=== PATIENT | male | born 1980 | race African-American/Black ===

== ENCOUNTER 2017-02-24 22:43 | Emergency (ER) | payer SELFPAY ==
[~2017-02-24] VITALS: Ht 175.3 cm; Wt 84.8 kg
[2017-02-24 22:56] VITALS: BP 135/83
[2017-02-24 23:25] LABS: DEFINITIVE VIEW TRANSMISSION; Hematocrit 45.8 % (41.0-53.0); Hemoglobin 15.3 g/dL (13.5-17.5); Mean Corpuscular Hemoglobin 32.6 pg (28.0-32.0); Mean Corpuscular Hgb Conc. 33.3 g/dL (32.0-36.0); Mean Corpuscular Volume 97.8 fL (80.0-100.0); Mean Platelet Volume 7.2 fL (7.4-10.4); Platelet Count (auto) 241 10^3/uL (140-450); Red Cell Distribution Width 12.9 % (11.6-16.0); SUSPECT VIEW TRANSMISSION; White Blood Cell 9.9 10^3/uL (4.4-10.8)
[2017-02-24 23:29] LABS: Metamyelocytes % 0; Myelocytes % 0; Promyelocytes % 0; Reactive Lymphocytes 0
[2017-02-24 23:50] LABS: Albumin 4.1 g/dL (3.4-5.0); Anion Gap 8 (5-15); Aspartate Aminotransferase 19 U/L (15-37); BUN/Creatinine Ratio 9.4; Blood Urea Nitrogen 9 mg/dL (7-18); Carbon Dioxide 30 mmol/L (21-32); Chloride 104 mmol/L (98-107); GFR African American 113 mL/min; GFR Non-African American 93 mL/min; Glucose 104 mg/dL (74-106); Magnesium 2.2 mg/dL (1.6-2.6); Potassium 3.4 mmol/L (3.5-5.1); Sodium 142 mmol/L (136-145)
[2017-02-24 23:57] LABS: Alkaline Phosphatase 76 U/L (45-117); Bilirubin, Total 0.5 mg/dL (0.2-1.0); Total Protein 7.5 g/dL (6.4-8.2)
[2017-02-25 00:14] LABS: Hypersegmented Neutrophils Present; Platelet Estimate Adequate; RBC Morphology Normal
== END 2017-02-25 05:15 | disposition left against medical advice (07) ==
LOC: ER 22:43
DX: R07.9 Chest pain, unspecified (principal); Z53.21 Procedure and treatment not carried out due to patient leaving prior to being seen by health care provider
CPT/HCPCS: 36415; 71010; 80053; 83735; 84484; 85007; 85027; 93005

== ENCOUNTER → 2023-02-14 | Outpatient (CLI) | payer BC ==
[2023-02-14 12:15] LABS: Basophils # (auto) 0 10 ^3/uL (0-0.2); Basophils % (auto) 0.8 % (0.0-2.0); Eosinophils # (auto) 0.1 10 ^3/uL (0-0.8); Eosinophils % (auto) 0.9 % (0.0-7.0); Hematocrit 43.2 % (41.0-53.0); Hemoglobin 14.9 g/dL (13.5-17.5); Lymphocytes # (auto) 2.5 10 ^3/uL (0.4-5.4); Lymphocytes % (auto) 46.6 % (10.0-50.0); Mean Corpuscular Hemoglobin 33.7 pg (28.0-32.0); Mean Corpuscular Hgb Conc. 34.6 g/dL (32.0-36.0); Mean Corpuscular Volume 97.2 fL (80.0-100.0); Monocytes # (auto) 0.5 10 ^3/uL (0-1.3); Monocytes % (auto) 8.9 % (0.0-12.0); Neutrophils # (auto) 2.3 10 ^3/uL (1.6-8.6); Neutrophils % (auto) 42.8 % (37.0-80.0); Nucleated Red Blood Cells % 0.1 %; Red Blood Cells 4.44 10^6/uL (4.5-5.90); Red Cell Distribution Width 14.1 % (11.8-14.3); White Blood Cell 5.4 10^3/uL (4.4-10.8)
[2023-02-14 12:38] LABS: Urine Bacteria FEW /hpf (None Seen); Urine Blood 1+ /uL (Negative); Urine WBC 2 /hpf (0 - 3)
[2023-02-14 12:39] LABS: Albumin 4.1 g/dL (3.4-5.0)
[2023-02-14 12:50] LABS: Prostate Specific Antigen 1.24 ng/mL (0.0-4.0)
[2023-02-14 12:51] LABS: BUN/Creatinine Ratio 13.3 (10.0-20.0); Bilirubin, Total 0.8 mg/dL (0.2-1.0); Calcium 9.1 mg/dL (8.5-10.1); Total Protein 7.2 g/dL (6.4-8.2); Uric Acid 7.5 mg/dL (3.5-7.2)
== END | disposition home or self-care (01) ==
LOC: LAB 11:48
PROVIDERS: ATTEND Family Medicine
DX: Z00.00 Encounter for general adult medical examination without abnormal findings (principal); I10 Essential (primary) hypertension; M79.641 Pain in right hand; F12.10 Cannabis abuse, uncomplicated; B35.1 Tinea unguium; Z68.30 Body mass index [BMI] 30.0-30.9, adult
CPT/HCPCS: 36415; 80053; 80061; 81001; 82306; 82607; 83036; 83540; 83735; 84153; 84443; 84550; 85025; 87086